=== PATIENT | female | born 1965 | race Asian ===

== ENCOUNTER → 2017-02-15 | Day surgery (SDC) | payer OTHER ==
[2017-02-15] VITALS (7 sets, daily range): BP systolic 107–136; BP diastolic 58–87; PULSE 68–106; RESP 14–17; O2SAT 97–100
[~2017-02-15] VITALS: Ht 147.3 cm; Wt 47.6 kg
[~2017-02-15] MED LIST: Atropine 0.4 mg/mL Inj IVPUSH PRN; DOCO1CAP3 PO; Dexamethasone 4 mg/mL Inj IVPUSH PRN; Dexamethasone 4 mg/mL Inj ONE; EPHEDrine Sulfate 50 mg/mL Inj IVPUSH PRN; HYDROmorphone 1 mg/mL Inj IVPUSH PRN; Lactated Ringer's 1,000 ML IV SCH; Lactated Ringer's 500 ML IV PRN; MULT-1018 PO; MetoCLOpramide 5 mg/mL 2 mL Inj IVPUSH PRN; Ondansetron 2 mg/mL 2 mL Inj IVPUSH PRN; Ondansetron 2 mg/mL 2 mL Inj ONE; Phenylephrine 10,000 mCg/mL Inj IVPUSH PRN; Propofol 10,000 mCg/mL 20 mL Inj ONE; diphenhydrAMINE 25 mg Capsule PO PRN; fentaNYL-PF 50 mCg/mL 2 mL Inj IVPUSH PRN; fentaNYL-PF 50 mCg/mL 2 mL Inj ONE
[2017-02-15] MEDS: Lactated Ringer's 1,000 ML IV SCH ×2 (12:24→13:34)
--- NOTE | 2017-02-15 13:06 | PCM.HPANE ---
Patient Data Surgeon Admitting Provider: Attending Provider:Jason Salvador MD Primary Care Physician:Alfa Other Provider:[facility] Reason for Visit Postmenopausal Bleeding Ht/WT & BMI Height (Feet): 4 Height (Inches): 10.00 Weight (Kilograms): 47.6 Body Mass Index 22.00 Allergies Coded Allergies: No Known Allergies (Unverified , 02/07/17) Past Anesthesia History Anesthesia History: Denies:: Anesthesia Reactions, Fam Anesthesia Reaction Diabetes History Hx Diabetes?: No MRSA MRSA: No Medications Home Meds Incl Beta Arthur: No Reported Medications Multivitamin (Multi Vitamin Daily)1 Each Tablet1 Each PO DAILY 30 Days Ref 0 02/07/17 Docosahexanoic Acid/Epa (Fish Oil Concentrate Softgel)1 Each Capsule1 Each PO DAILY 02/07/17 History History of ENT Problems?: No HEENT History: Denies:: Abnormal Airway Denture Type: None Teeth Condition: Within Normal Limits Hx of Heart Problems?: No Cardiovascular History: Denies:: Edema Hypertension Hx of Respiratory Problem?: No Respiratory History: Denies:: Asthma COPD Oxygen Administration Pneumonia Tuberculosis Use of C-PAP Machine Hx Neurologic Problems?: No Neurological History: Denies:: CVA Headaches Multiple Sclerosis Parkinson's Disease Seizures Hx of GI Problems?: No Hx of Problems?: No Female Hx: Denies:: Currently Skin History: Denies:: History Skin Disorders? Pressure Ulcers Hx Musculoskeletal Problems?: No Hx of Psycho/Social Problems?: No Hx Surgeries?: Yes (C section, D+C, hysteroscopy) Hx Any Other Health Problems?: Yes Other History: Denies:: Cancer Thyroid Disease Hx Diabetes: No Hx Alcohol Use: NoHx Substance Use: No Smoking Status: Former Smoker Have You Smoked inLast 12 mo: No Stop/Bang P-Blood Pressure: treated: No B- Body Mass Index > 35 kg/m2: No A- Age over 50: No N- Neck Large Circumference: No G- Gender Male: No MIRI Risk Assessment: Low Risk, <3 Yes Risk Assessment Category Category 1A: Patient has history of documented sleep apnea, and HAS NOT received any narcotic, sedative or anesthesia administration during this stay. Category 1B: Patient has history of documented sleep apnea, and HAS received any narcotic , sedative or anesthesia administration during this stay Category 2: Patient has SUSPECTED Obstructive Sleep Apnea, and HAS received any narcotic , sedative or anesthesia administration during this stay. Category 3: Patient has SUSPECTED Obstructive Sleep Apnea and HAS NOT received narcotic, sedative or anesthesia administration during this stay. Category 4: Outpatient in Procedural Areas with known sleep apnea or who screen positive for High Risk via the STOP/BANG questionnaire. Exam Exam Vital Signs Vital Signs Date Time Temp Pulse Resp B/P Pulse Ox O2 Delivery O2 Flow Rate FiO2 02/15/17 12:17 36.4 89 16 107/72 97 Room Air General Appearance: Alert, Oriented X3, Cooperative, No Acute Distress HEENT/AIRWAY: MP 1 Lungs: Clear to Auscultation, Normal Air Movement Heart: Exam Unremarkable, Regular Rate/Rhythm, No Murmurs/Rubs/Gallops Meds/Labs/Diagnostics Admission Meds Current Medications Lactated Ringer's (Lr) 1,000 ml @ 120 mls/hr Q8H20M IV Last administered on t 12:24; Start 02/15/17 at 05:00; Stop 02/15/17 at 13:19 Plan Impression Patient chart reviewed, patient interviewed and anesthestic plan with risks, benefits, and alternatives discussed, and informed consent obtained. NPO per Anesth. Guidelines: Yes ASA Physical Status: ASA1 Normal Healthy Anesthetic Plan: GA Bene/Risks/Altern/Consents: Yes HP Complete Prior to Induction: Yes Leonard Baer MD Feb 15, 2017 13:06
[2017-02-15] MEDS: oxyCODONE-Acetamin 5-325 mg Tablet PO PRN ×2 (16:23→17:16)
--- NOTE | 2017-02-15 17:02 | PCM.ANEP1 ---
Post Anesthesia PACU Phase 1 Assessment Vital Signs Vital Signs Date Time Temp Pulse Resp B/P Pulse Ox O2 Delivery O2 Flow Rate FiO2 02/15/17 16:00 36.7 86 15 108/58 98 Room Air 02/15/17 15:33 84 14 115/67 100 Nasal Cannula 4 02/15/17 15:10 84 14 118/64 100 Nasal Cannula 4 02/15/17 15:05 105 17 132/73 100 Nasal Cannula 4 02/15/17 14:55 36.5 106 16 121/66 100 Nasal Cannula 4 02/15/17 12:17 36.4 89 16 107/72 97 Room Air Anesthetic Administered: GA Level of Alertness: Awake, talking GODWIN's with Equal Strength: Yes Pain: No Nausea or Vomiting: No CV Function & Hydration Stable: Yes Airway Device: Oralpharangeal Airway Oxygen Delivery: Room Air Lungs: Clear to Auscultation, Normal Air Movement Dermatome Level: Full Sensation PACU Phase 2 Assessment Complications: No Follow up Care: N/A Patient Instructions Provided: Yes Leonard Baer MD Feb 15, 2017 17:02
--- NOTE | 2017-02-15 18:36 | OP ---
[address] [address] OPERATIVE REPORT PATIENT: JOSE CHEN : 1965 MR#: [id number] ADMIT: 02/15/2017 JOB ID: [id number] DATE OF SURGERY: 02/15/2017 PREOPERATIVE DIAGNOSIS(ES): A 51-year-old 2, para 1-0-1-1, with postmenopausal bleeding and thick endometrial stripe on ultrasound measuring 8.8 mm on January 16, 2017. Failed office attempt for endometrial biopsy due to stenotic cervix. POSTOPERATIVE DIAGNOSIS(ES): A 51-year-old 2, para 1-0-1-1, with postmenopausal bleeding and thick endometrial stripe on ultrasound measuring 8.8 mm on January 16, 2017. Failed office attempt for endometrial biopsy due to stenotic cervix. PROCEDURE: Hysteroscopy, dilation and curettage (D and C). SURGEON: Jason Salvador MD LEATHER PIECE INSPECTOR: Nereida Meza MD ANESTHESIA: General endotracheal. ESTIMATED BLOOD LOSS: 30 mL. IV FLUIDS: 600 mL of LR. COMPLICATIONS: None. DISTENTION MEDIA: For the hysteroscopy normal saline with a deficit of 700 mL at the end of the procedure. SPECIMEN REMOVED: Cervical and endometrial curettage was sent to Pathology. FINDINGS: 1. Examination under anesthesia: No adnexal masses appreciated bilaterally. Average sized anteverted uterus. 2. Hysteroscopic findings: Visualized tubal ostia bilaterally. No masses. No fibroids. Atrophic looking endometrium with some scarring. Pictures taken. DESCRIPTION OF PROCEDURE: Risks, benefits, and alternatives were discussed with the patient. Informed consent signed. The patient moved to the OR with IV running. After general anesthesia was found to be adequate the patient was examined under anesthesia with the above findings. The patient was then prepped and draped in the normal sterile fashion. A small speculum was inserted in the patient's vagina, the anterior lip of cervix grasped with single-tooth tenaculum, and the cervix dilated up to Hegar dilator number six gradually with gentle pressure at the level of the cervical os. Uterus sounded previously to 7 cm with the uterine sound. MyoSure scope was introduced into the uterine cavity with normal saline as distention media and under direct visualization both tubal ostia were visualized and the above findings were observed. Pictures taken. Scope removed. A sharp curette introduced for cervical curettage followed by endometrial curettage. Good hemostasis assured. All instruments removed from patient's vagina. The single-tooth tenaculum site was mildly bleeding; this was controlled with Monsel solution. Good hemostasis assured. At the end of the procedure all sponge and instrument counts were correct x2. The patient was moved to Recovery in stable condition. Dr. Salvador was present and scrubbed for the entire procedure.
--- NOTE | 2017-02-21 17:19 | PATH ---
SURGICAL PATHOLOGY Attending Physician:Jason Salvador MD CASE STATUS: Signed Out PATIENT NAME: JOSE CHEN PID: [id number] : 1965 DATE COLLECTED:02/15/2017 00:00 SPECIMEN: 1: Cervix, Biopsy 2: Endometrium, Curettage CLINICAL HISTORY: POSTMENOPAUSAL BLEEDING 1). CERVICAL CURETTAGE 2). ENDOMETRIAL CURETTAGE FINAL DIAGNOSIS: 1.ENDOCERVIX, CURETTAGE: PREDOMINATELY BLOOD AND FIBRIN WITH RARE STRIPS OF BENIGN SQUAMOUS MUCOSA WITH AREAS OF CALCIFICATION. DETACHED CALCIFICATIONS; SEE COMMENT. NEGATIVE FOR NEOPLASM. 2.ENDOMETRIUM, CURETTAGE: PREDOMINATELY BLOOD AND FIBRIN WITH RARE STRIPS OF ENDOCERVICAL EPITHELIUM. SCATTERED CALCIFICATIONS; SEE COMMENT. NEGATIVE FOR NEOPLASM. [id number] NOTE: The finding of calcifications is nonspecific and can be seen secondary to hormonal agents, trauma, inflammation, or less likely, neoplasm. If clinical suspicion for neoplasm persists, a repeat biopsy may be contributory.Multiple step-sections are examined in each part. GROSS DESCRIPTION: Received two formalin-filled containers, each labeled with the patient' s name. 1. Received in formalin, labeled with the patient' s name and "cervical curettage", are multiple fragments of dark mucoidal tissue measuring 2.0 x 0.7 x 0.1 cm in aggregate. The fragments are totally submitted in cassette 1A. 2. Received in formalin, labeled with the patient' s name and "endometrial curettage", are multiple fragments of dark mucoidal tissue measuring 2.0 x 1.0 x 0.2 cm in aggregate. The fragments are totally submitted in cassette 2A. [id number]) MICRO DESCRIPTION: See diagnosis. ICD-9 CODES: CPT CODES: 1: 81203 2: 31190 Electronically Signed Out Leonard Virk MD, Ph.D. Formerly [facility] Pathology [facility] [address], [place] [address] Technical component performed at [facility], [address], [place], [address]
== END | disposition home or self-care (01) ==
LOC: SAS 11:47
PROVIDERS: ATTEND Obstetrics & Gynecology
DX: N95.0 Postmenopausal bleeding (principal); N88.8 Other specified noninflammatory disorders of cervix uteri; Z87.891 Personal history of nicotine dependence
CPT/HCPCS: 58558; J1100; J2175; J2250; J2405; J2704; J3010; J7120